=== PATIENT | female | born 1950 | race Caucasian/White ===

== ENCOUNTER 2019-05-07 13:15 | Emergency (ER) | payer MEDICARE, OTHER ==
[2019-05-07 13:23] VITALS: RESP 19
--- NOTE | 2019-05-07 13:51 | ED ---
Fall HPI - General Chief Complaint: Fall Stated Complaint: fall Time Seen by Provider: 05/07/19 13:30 Source: patient, EMS Mode of arrival: EMS - History of Present Illness Initial Comments: Patient is 69-year-old female presenting to emergency Department with chief complaint of a fall. Patient reports she was in a [employer] when she attempted to reach for her [employer] card and tripped over her shoes causing her to fall forward. Patient reports she attempted to brace herself with her hands and now she's having pain in the right wrist with limited range of motion. Patient also reports some trauma to the distal end of the right second digit. Patient does report some supraorbital trauma with bleeding from region. Patient denies any headaches. Patient denies blood thinners, nausea, vomiting or loss of consciousness. Patient was brought to the ED via EMS from [facility]. - Related Data Home Medications Medication Instructions Recorded Confirmed Montelukast Sodium [Singulair] 10 mg PO HS 09/28/15 11/07/15 Pilocarpine HCl 5 mg PO TID 09/28/15 11/07/15 Simvastatin 40 mg PO HS 09/28/15 11/07/15 Pro-Stat Sugar Free 30 ml PO BID 11/07/15 11/07/15 Previous Rx's Medication Instructions Recorded Artificial Tears-Hypromellose 1 drops BOTH EYES QID PRN #0 bottle 10/16/15 [Artificial Tear Drops] Metoprolol Succinate [Toprol XL] 50 mg PO DAILY #1 tab 10/16/15 ALPRAZolam [Xanax] 0.25 mg PO BID PRN #10 tab 11/10/15 Aspirin 81 mg PO DAILY #1 chewable 11/10/15 Cholestyramine (with Sugar) 4 gm PO TID #30 packet 11/10/15 [Questran Packet] Hydrocodone/Acetaminophen 1 tab PO BID PRN #20 tablet 11/10/15 [Hydrocodone-Acetamin 2.5-325] Lactobacillus Acidoph & Bulgar 1 each PO TID #30 packet 11/10/15 [Lactinex] metroNIDAZOLE [Flagyl] 500 mg PO TID #30 tab 11/10/15 Allergies Allergy/AdvReac Type Severity Reaction Status Date / Time cefaclor Allergy Rash/Hives Verified 11/07/15 18:30 hornet venom Allergy Anaphylaxis Verified 11/07/15 18:30 Iodinated Contrast Media Allergy Itching Verified 11/07/15 18:30 Review of Systems ROS Statement: Those systems with pertinent positive or pertinent negative responses have been documented in the HPI. ROS Other: All systems not noted in ROS Statement are negative. Past Medical History Past Medical History: Asthma, Diabetes Mellitus, Fibromyalgia, Hyperlipidemia, Hypertension, Osteoarthritis (OA), Thyroid Disorder Additional Past Medical History / Comment(s): raynaud's dz, sjogren's syndrome, closed head injury September 2015 History of Any Multi-Drug Resistant Organisms: None Reported Past Surgical History: Adenoidectomy, Tonsillectomy Additional Past Surgical History / Comment(s): bowel surgery, cataract suregry bilateral, rectal dilation, Past Anesthesia/Blood Transfusion Reactions: No Reported Reaction Past Psychological History: Anxiety, Depression Smoking Status: Former smoker Past Alcohol Use History: None Reported Past Drug Use History: None Reported - Past Family History Mother Family Medical History: Unable to Obtain General Exam Limitations: no limitations General appearance: alert, in no apparent distress Head exam: Present: normocephalic. Absent: atraumatic (Trauma to the right supraorbital region with no active bleeding at this time.), normal inspection, other (Negative hemotympanum, negative periorbital ecchymosis, negative Comer sign.) Eye exam: Present: normal appearance, PERRL, EOMI, other (Trauma the right eyebrow) Pupils: Present: normal accommodation ENT exam: Present: normal exam, normal oropharynx (No oral trauma), mucous membranes moist, TM's normal bilaterally, normal external ear exam Neck exam: Present: normal inspection, full ROM. Absent: tenderness Respiratory exam: Present: normal lung sounds bilaterally Cardiovascular Exam: Present: regular rate, normal rhythm, normal heart sounds GI/Abdominal exam: Present: soft. Absent: distended, tenderness, guarding Extremities exam: Present: normal inspection, full ROM Back exam: Present: normal inspection, full ROM Neurological exam: Present: alert, oriented X3 Psychiatric exam: Present: normal affect, normal mood Skin exam: Present: warm, intact, normal color Course Vital Signs 05/07/19 13:17 Temperature 98.5 F Pulse Rate 81 Respiratory 19 Rate Blood Pressure 129/70 O2 Sat by Pulse 100 Oximetry Procedures - Laceration Laceration #1 Consent Obtained: verbal consent Indication: laceration Site: face Size (cm): 1 Description: linear Depth: simple, single layer Sedation/Analgesia: none Pre-repair: irrigated extensively Type of Sutures: nylon Size of Sutures: 4-0 Number of Sutures: 2 Technique: simple, interrupted Patient Tolerated Procedure: well, no complications Medical Decision Making - Medical Decision Making patient is 69-year-old female presenting to the emergency department with a chief complaint of a fall. Patient is not on blood thinners. There was no loss of consciousness and but there appears to be head trauma with some contusion to the right supraorbital region with a laceration of less than 1 cm. Patient is also having limited range of motion in the right wrist. CT of the brain and C- spine is negative for acute fractures, dislocations, intracranial hemorrhage, midline shift or any space-occupying lesions. X-ray of the right wrist is indicative of no fractures dislocations although follow-up study in 7-10 days is suggested. There is some severe osteoarthritis in the hand. Patient does not have any snuffbox tenderness. Patient advised to follow-up with orthopedics for further management. Patient vised to return to emergency department for suture removal in 3-5 days. Strict return parameters were thoroughly discussed with patient was understanding and agreeable. Case discussed physician. With Disposition Clinical Impression: Fall, Laceration, Wrist pain Disposition: HOME SELF-CARE Condition: Stable Instructions (If sedation given, give patient instructions): Fall Prevention (ED) Additional Instructions: Please follow-up with account resolution specialist. Please return to emergency department if symptoms worsen. Is patient prescribed a controlled substance at d/c from ED?: No Referrals: Patric Heaton MD [Primary Care Provider] - 1-2 days Time of Disposition: 15:37
--- NOTE | 2019-05-07 14:40 | CT ---
EXAMINATION TYPE: CT brain hussain bush con DATE OF EXAM: 05/07/2019 COMPARISON: 10/12/2015 HISTORY: fall with blow to head. right eyebrow laceration CT DLP: 1364.[address] of the brain was performed. The ventricles, basal cisterns and sulci overlying the cerebral convexities demonstrate mild enlargem ent. There is no evidence for intracranial hemorrhage or sulcal effacement. There is decreased attenuatio n about the periventricular white matter and deep white matter of both cerebral hemispheres, compatib le with chronic small vessel ischemia. No mass effects are seen. If symptoms persist consider MRI. Osseous calvarium is intact. Right supraorbital soft tissue swelling noted. IMPRESSION: 1. Age related atrophic and chronic small vessel ischemic change without acute intracranial process seen at this time. CT Cervical Spine: Unenhanced CT of the cervical spine was performed with bone and soft tissue window settings submitted . Coronal and sagittal reconstruction is obtained. There is normal alignment and prevertebral soft tissues. No evidence for acute cervical fracture . Scattered degenerative disc disease and spondylosis. Biapical scarring. IMPRESSION: 1. No evidence for acute fracture or subluxation of the cervical spine.
--- NOTE | 2019-05-07 15:24 | XR ---
EXAMINATION TYPE: XR hand complete RT DATE OF EXAM: 05/07/2019 COMPARISON: NONE HISTORY: Pain TECHNIQUE: Three views are submitted. FINDINGS: Diffuse osteopenia. Severe arthropathy of the DIP joints and fourth and fifth PIP joints. Mild arthro gasper of the remaining joints. Central erosive changes involving the second, third, fourth and fifth DIP joints. Question of ankylosis of the fourth DIP joint. No acute displaced fracture. IMPRESSION: 1. No definite acute fracture or dislocation if symptoms persist, follow-up study in 7 to 10 days wo uld be suggested. 2. Severe erosive osteoarthritis
--- NOTE | 2019-05-07 15:26 | XR ---
EXAMINATION TYPE: XR chest 2V DATE OF EXAM: 05/07/2019 COMPARISON: NONE TECHNIQUE: PA and lateral views submitted. HISTORY: Pain FINDINGS: The lungs are clear and there is no pneumothorax, pleural effusion, or focal pneumonia. Diffuse ost eopenia. No overt failure. Heart size normal. Suggestion of a hiatal hernia. Atherosclerotic change o f the aorta. Hypertrophic and degenerative change of the spine. Questionable deformity involving the right clavicle. IMPRESSION: 1. No acute intrathoracic process. 2. Questionable deformity involving the midshaft right clavicle correlate with point tenderness for h airline fracture.
--- NOTE | 2019-05-07 15:26 | XR ---
EXAMINATION TYPE: XR pelvis AP view DATE OF EXAM: 05/07/2019 COMPARISON: NONE HISTORY: Pain The osseous structures are intact and the joint spaces are preserved. No acute fracture is seen. Vi sualized bowel gas pattern is nonspecific. Diffuse osteopenia. Degenerative change of the spine. Sev ere arthropathy of the hips. IMPRESSION: 1. No acute fracture.
--- NOTE | 2019-05-07 15:29 | XR ---
EXAMINATION TYPE: XR wrist complete RT DATE OF EXAM: 05/07/2019 CLINICAL HISTORY: pain TECHNIQUE: Frontal, lateral and oblique images of the right wrist are obtained. COMPARISON: None. FINDINGS: Progressive evidence for fracture. There is widening of the scapholunate joint space may reflect lig amentous tear. The overlying soft tissue appears unremarkable. IMPRESSION: No acute fracture seen. Correlate for scapholunate ligamentous tear. ICD 10 NO FRACTURE, INITIAL EVALUATION
[2019-05-07] MEDS: TOPICAL SKIN ADHESIVE 1 EACH AMP TOPICAL ONE ×2 (15:40→15:47)
[2019-05-07 20:10] VITALS: BP 132/77; PULSE 78; TEMP 98
== END 2019-05-07 16:11 | disposition home or self-care (01) ==
LOC: EC 13:15
DX: S01.81XA Laceration without foreign body of other part of head, initial encounter (principal); M19.041 Primary osteoarthritis, right hand; E78.5 Hyperlipidemia, unspecified; I10 Essential (primary) hypertension; M35.00 Sjogren syndrome, unspecified; Z79.899 Other long term (current) drug therapy; Z91.041 Radiographic dye allergy status; Z88.1 Allergy status to other antibiotic agents; Z91.030 Bee allergy status; Z87.891 Personal history of nicotine dependence; W01.0XXA Fall on same level from slipping, tripping and stumbling without subsequent striking against object, initial encounter; Y93.89 Activity, other specified
CPT/HCPCS: 12011; 70450; 71046; 72125; 72170; 99284

== ENCOUNTER 2019-05-15 12:42 | Observation (INO) | payer MEDICARE, OTHER ==
--- NOTE | 2019-05-15 13:55 | ED ---
General Adult HPI - General Chief complaint: ENT Stated complaint: FB throat Time Seen by Provider: 05/15/19 12:56 Source: patient Mode of arrival: wheelchair Limitations: physical limitation - History of Present Illness Initial comments: Dictation was produced using [employer] dictation software. please excuse any grammatical, word or spelling errors. Chief Complaint: 69-year-old female presents with difficulty swallowing. History of Present Illness: 69-year-old female she has past medical history of Sjogren's syndrome, rheumatoid arthritis and renounced disease. Patient states she was eating dry toast this morning when she felt as though food bolus Stuck in her throat. She waited for several hours to see if the food bolus with past. Patient states she's been having swallowing difficulties that have been increasing intensity and frequency. She has never been evaluated for dysphagia in the past. Patient states she continues to feel foreign body in her throat. Denies any trouble breathing. She reports that she is unable to swallow even liquids. The ROS documented in this emergency department record has been reviewed and confirmed by me. Those systems with pertinent positive or negative responses have been documented in the HPI. All other systems are other negative and/or noncontributory. PHYSICAL EXAM: General Impression: Alert and oriented x3, not in acute distress HEENT: Normocephalic atraumatic, extra-ocular movements intact, pupils equal and reactive to light bilaterally, mucous membranes moist. Cardiovascular: Heart regular rate and rhythm, S1&S2 audible, no murmurs, rubs or gallops Chest: Lungs clear to auscultation bilaterally, no rhonchi, no wheeze, no rales Abdomen: Bowel sounds present, abdomen soft, non-tender, non-distended, no organomegaly Musculoskeletal: Pulses present and equal in all extremities, no peripheral edema Motor: no focal deficits noted Neurological: CN II-XII grossly intact, no focal motor or sensory deficits noted Skin: Intact with no visualized rashes Psych: Normal affect and mood ED course: 69-year-old female presents with dysphagia. Vital signs upon arrival are within acceptable limits. Patient is nontoxic-appearing. She is not drooling or showing any signs of respiratory distress. Soft tissue neck x-ray was obtained showing pain airway soft tissue neck CT shows frothy attenuation within the proximal cervical esophagus which represents food bolus. Discussed patient case with Dr. Cherry who requests the patient be admitted to medicine with possible plans for upper endoscopy tomorrow morning. Patient nontoxic appearing. She is not drooling or showing signs rest or distress. Discussed patient case with Dr. Heaton patient's primary care physician who is willing to accept patients care for admission. - Related Data Home Medications Medication Instructions Recorded Confirmed Pilocarpine HCl 5 mg PO TID 09/28/15 05/15/19 ALPRAZolam [Xanax] 0.5 mg PO TID 05/15/19 05/15/19 Furosemide [Lasix] 40 mg PO DAILY 05/15/19 05/15/19 Metoprolol Tartrate [Lopressor] 25 mg PO BID 05/15/19 05/15/19 Simvastatin [Zocor] 20 mg PO HS 05/15/19 05/15/19 Telmisartan [Micardis] 40 mg PO DAILY 05/15/19 05/15/19 traMADol HCL 50 mg PO BID 05/15/19 05/15/19 Allergies Allergy/AdvReac Type Severity Reaction Status Date / Time cefaclor Allergy Rash/Hives Verified 05/15/19 13:50 hornet venom Allergy Anaphylaxis Verified 05/15/19 13:50 Iodinated Contrast Media Allergy Itching Verified 05/15/19 13:50 Review of Systems ROS Statement: Those systems with pertinent positive or pertinent negative responses have been documented in the HPI. ROS Other: All systems not noted in ROS Statement are negative. Past Medical History Past Medical History: Asthma, Diabetes Mellitus, Fibromyalgia, Hyperlipidemia, Hypertension, Osteoarthritis (OA), Thyroid Disorder Additional Past Medical History / Comment(s): raynaud's dz, sjogren's syndrome, closed head injury September 2015, legally blind History of Any Multi-Drug Resistant Organisms: None Reported Past Surgical History: Adenoidectomy, Tonsillectomy Additional Past Surgical History / Comment(s): bowel surgery, cataract suregry bilateral, rectal dilation, Past Anesthesia/Blood Transfusion Reactions: No Reported Reaction Past Psychological History: Anxiety, Depression Smoking Status: Former smoker Past Alcohol Use History: None Reported Past Drug Use History: None Reported - Past Family History Mother Family Medical History: Unable to Obtain General Exam Limitations: physical limitation Course Vital Signs 05/15/19 12:50 Temperature 98.2 F Pulse Rate 100 Respiratory 18 Rate Blood Pressure 150/78 O2 Sat by Pulse 100 Oximetry Medical Decision Making - Lab Data Result diagrams: 05/15/19 13:50 05/15/19 13:50 Lab Results 05/15/19 05/15/19 Range/Units 13:50 13:50 WBC 4.9 (3.8-10.6) k/uL RBC 4.40 (3.80-5.40) m/uL Hgb 12.9 (11.4-16.0) gm/dL Hct 38.0 (34.0-46.0) % MCV 86.5 (80.0-100.0) fL MCH 29.2 (25.0-35.0) pg MCHC 33.8 (31.0-37.0) g/dL RDW 13.9 (11.5-15.5) % Plt Count 242 (150-450) k/uL Neutrophils % 79 % Lymphocytes % 13 % Monocytes % 5 % Eosinophils % 1 % Basophils % 0 % Neutrophils # 3.9 (1.3-7.7) k/uL Lymphocytes # 0.6 L (1.0-4.8) k/uL Monocytes # 0.2 (0-1.0) k/uL Eosinophils # 0.1 (0-0.7) k/uL Basophils # 0.0 (0-0.2) k/uL Sodium 138 (137-145) mmol/L Potassium 4.1 (3.5-5.1) mmol/L Chloride 106 (98-107) mmol/L Carbon Dioxide 25 (22-30) mmol/L Anion Gap 7 mmol/L BUN 12 (7-17) mg/dL Creatinine 1.09 H (0.52-1.04) mg/dL Est GFR (CKD-EPI)AfAm 59 (>60 ml/min/1.73 sqM) Est GFR (CKD-EPI)NonAf 51 (>60 ml/min/1.73 sqM) Glucose 108 H (74-99) mg/dL Calcium 9.9 (8.4-10.2) mg/dL Disposition Clinical Impression: Food impaction of esophagus Disposition: ADMITTED IP TO THIS HOSP Condition: Fair Referrals: Patric Heaton MD [Primary Care Provider] - 1-2 days Decision Time: 15:40
[2019-05-15 14:00] LABS: Basophils % (A) 0 %; Eosinophils # (A) 0.1 k/uL (0-0.7); Eosinophils % (A) 1 %; HGB 12.9 gm/dL (11.4-16.0); Lymphocytes # (A) 0.6 k/uL (1.0-4.8); Lymphocytes % (A) 13 %; MCH 29.2 pg (25.0-35.0); MCHC 33.8 g/dL (31.0-37.0); MCV 86.5 fL (80.0-100.0); Mean Platelet Volume 6.4; Monocytes # (A) 0.2 k/uL (0-1.0); Monocytes % (A) 5 %; Neutrophils # (A) 3.9 k/uL (1.3-7.7); Neutrophils % (A) 79 %; Platelet Count 242 k/uL (150-450); RDW 13.9 % (11.5-15.5); WBC 4.9 k/uL (3.8-10.6)
--- NOTE | 2019-05-15 14:01 | XR ---
EXAMINATION TYPE: XR soft tissue neck DATE OF EXAM: 05/15/2019 COMPARISON: NONE HISTORY: Dysphasia, possible foreign body TECHNIQUE: Frontal and lateral views of neck soft tissues FINDINGS: Airways patent. No prevertebral edema. Epiglottic shadow is normal. No radiopaque foreign b edie. Calcifications of the right carotid bifurcation. IMPRESSION: No radiopaque foreign body. Patent airway.
[2019-05-15 14:08] LABS: Calcium 9.9 mg/dL (8.4-10.2); Potassium 4.1 mmol/L (3.5-5.1)
--- NOTE | 2019-05-15 14:54 | CT ---
EXAMINATION TYPE: CT soft tissue neck wo con DATE OF EXAM: 05/15/2019 HISTORY: Cough and dysphagia. COMPARISON: None CT DLP: 211.5 mGycm. Automated Exposure Control for Dose Reduction was Utilized. TECHNIQUE: CT scan of the neck is performed without intravenous contrast, axial images are obtained, coronal and sagittal reformatted images are reviewed. FINDINGS: Lack of intravenous contrast significantly limits evaluation. The nasopharynx, oropharynx, hypopharynx, and larynx are patent. Somewhat frothy attenuated appearanc e within the proximal cervical esophagus, noncalcified, centered at the distal margin of the cricoid cartilage. The thyroid gland is heterogenous in attenuation with marked enlargement of the left lobe extending i nto the superior mediastinum. Calcifications of the arterial vasculature. No aggressive osseous lesion. Mild-moderate cervical spine degenerative changes; grade 1 anterolisthe sis of C4 over C5 and C5 over C6 is likely on a degenerative basis. Lung apices are clear. IMPRESSION: Somewhat frothy attenuation within the proximal cervical esophagus is nonspecific however may represe nt food bolus in the appropriate clinical setting.
[2019-05-15] MEDS ORDERED: GLUCAGON 1 MG/ML VIAL IVP STA (14:57)
[2019-05-15] MEDS ORDERED: ONDANSETRON 4 MG/2 ML VIAL IVP PRN (15:37)
[2019-05-15] MEDS ORDERED: NALOXONE 0.4 MG/ML 1 ML VIAL IV PRN (15:37)
[2019-05-15] MEDS: SODIUM CHLORIDE 0.9% 1,000 ML IV SCH (16:02)
[2019-05-15] MEDS: KETOROLAC 30 MG/ML 1 ML VIAL IVP PRN (20:52)
[2019-05-15] MEDS: PILOCARPINE 5 MG TAB PO SCH (21:30)
--- NOTE | 2019-05-15 21:49 | HP ---
HISTORY AND PHYSICAL CHIEF COMPLAINT: 69-year-old white female who apparently has history of Sjogren's syndrome, rheumatoid arthritis, disease, swallowing toast got caught in her throat. She waited for several hours to try to get it passed. She felt difficulty swallowing with pain in the back of her throat. Evaluated for dysphagia in the past. EGD is scheduled for in the morning to remove foreign body unless respiratory status worsens overnight. She is unable to swallow liquids. Waiting for Gastroenterology consult. REVIEW OF SYMPTOMS: 14-point review of systems negative except for severe arthritis and recent fall hitting her head. She has bruising on the right side of her scalp. PHYSICAL EXAMINATION: Cardiovascular: S1-S2. Lungs show no signs of wheezing. Oxygen levels in mid 90s to high 90s on room air. Abdomen is soft. Extremities show gross edema and swelling in multiple joints including knees, ankles, hands. INTEGUMENT: Bruising over the right frontal area for periorbital. MEDICATIONS: Home medicines include Pilocarpine 5 mg t.i.d., Xanax 0.5 t.i.d., Lasix 40 mg daily, Lopressor 25 b.i.d., Zocor 20 daily, Micardis 40 daily, tramadol 50 b.i.d. ALLERGIES: TO CEFACLOR, HORNET VENOM, IODINE CONTRAST. REVIEW OF SYSTEMS: Fourteen-point review of systems negative except for mentioned in HPI. PAST MEDICAL HISTORY: Fibromyalgia, diabetes mellitus, dyslipidemia, hypertension, asthma, osteoarthritis, hypothyroidism. SURGERIES: Adenoidectomy, tonsillectomy, bowel surgery, cataract surgery. History of anxiety/depression. SOCIAL HISTORY: Former smoker. No alcohol. No drug use. FAMILY HISTORY: Mother unable to obtain. PHYSICAL EXAM: Vital signs stable. Afebrile. Cardiovascular S1, S2. LUNGS: No wheezing. Integument shows right periorbital bruising. Blood pressure is 150/78. Respiratory 16 to 18, pulse rate 100, temp 98.2. LABORATORY DATA: BUN is 12, creatinine 1.09, hemoglobin 12.9, white count 4.9. ASSESSMENT: 1. Food impaction of the esophagus. 2. Severe rheumatoid arthritis. 3. Osteoarthritis. 4. Orbital contusion. EGD to remove foreign body will be necessary probably be done in the morning unless respiratory distress occurs. Continue with Toradol IV for pain. Please see further orders. MMODL / IJN: [id number] /
[2019-05-15] MEDS: LORazepam 2 MG/ML INJ IV PRN (21:59)
[2019-05-16] MEDS: SODIUM CHLORIDE 0.9% 1,000 ML IV SCH ×3 (00:12→20:25)
[2019-05-16] MEDS: KETOROLAC 30 MG/ML 1 ML VIAL IVP PRN (03:14)
[2019-05-16] MEDS: LOSARTAN 50 MG TAB PO SCH ×2 (07:38→09:03)
[2019-05-16] MEDS: METOPROLOL TARTRATE 25 MG TAB PO SCH ×3 (07:38→20:24)
[2019-05-16] MEDS: FUROSEMIDE 40 MG TAB PO SCH ×2 (07:38→09:03)
[2019-05-16] MEDS: PILOCARPINE 5 MG TAB PO SCH ×4 (07:38→20:25)
[2019-05-16] MEDS: LORazepam 2 MG/ML INJ IV PRN (07:38)
[2019-05-16] MEDS ORDERED: PROPOFOL 10 MG/ML 20 ML VIAL IV ONE (08:16)
[2019-05-16] MEDS ORDERED: IV FLUID CONTINUATION 300 ML IV ONE (08:22)
--- NOTE | 2019-05-16 08:45 | P.PCN ---
Date of Procedure: 05/16/19 Procedure(s) Performed: BRIEF HISTORY: Patient is a 69-year-old, pleasant, female admitted hospital with acute for dysphagia. She had a piece of cirrhosis that was stuck in her throat yesterday evening. She is scheduled for an upper endoscopy to evaluate this further. PROCEDURE PERFORMED: Esophagoscopy with dilation and foreign body removal. PREOPERATIVE DIAGNOSIS: Acute food dysphagia. IV sedation per anesthesia. PROCEDURE: After informed consent was obtained, the patient was brought into the endoscopy unit. IV sedation was administered by Anesthesia under continuous monitoring. Initially the Olympus GIF-140 video endoscope was inserted into the mouth. Esophagus intubated without any difficulty. In the proximal cervical esophagus at 16 cm from the anal verge there was a circumferential stricture noted. The scope could not be advanced through the stricture. There was a small piece of food that was floating in the valeculla At this time proceed with a balloon dilation using 8-10 mm balloon in a sequential fashion for total of 90 seconds. Following this I was not able to advance the scope through the stricture. Initially I used a Florez net to retrieve the small piece of food that was located in the proximal cervical esophagus but hasn't was trying to retrieve it in gently passed through the stricture into the distal esophagus. At this time the procedure was terminated and the patient tolerated the procedure IMPRESSION: 1. Proximal cervical esophageal stricture status post balloon dilation using 8- 10 mm TTS balloon as described above. 2. Small piece of food in the proximal cervical esophagus that was removed as described above. RECOMMENDATIONS: The findings of this examination were discussed with the patient . She was advised to remain on a liquid diet today and advance as tolerated tomorrow. She was advised to follow up in office in 2-3 weeks
[2019-05-16 14:22] VITALS: RESP 16
--- NOTE | 2019-05-16 14:43 | CONS ---
CONSULTATION DATE OF DICTATION: May 16, 2019. REASON FOR CONSULTATION: Acute dysphagia. HISTORY OF PRESENT ILLNESS: Patient is a 69-year-old pleasant white female came into the emergency room last evening complaining of food stuck in the throat area. The patient has history of Sjogren syndrome and rheumatoid arthritis and has been having intermittent dysphagia to pills for the last several months' duration. She was eating toast and she thought it got caught in her throat. She came into the emergency room yesterday evening and looked comfortable and was able to swallow her liquids. She was admitted to the hospital for overnight observation and we are consulted for further evaluation. The patient, this morning, states that she still feels that there is a piece of toast stuck in her throat. She has been able to swallow saliva. She had a comfortable night. PAST MEDICAL HISTORY: Significant for Sjogren's disease, rheumatoid arthritis, fibromyalgia, diabetes mellitus, dyslipidemia, hypertension, osteoarthritis. PAST SURGICAL HISTORY: Adenoidectomy, tonsillectomy, cataract surgery. MEDICATIONS: At home include pilocarpine, Xanax, Lasix, Lopressor, Zocor, Micardis, Tramadol. ALLERGIES: CECLOR, IODINE. SOCIAL HISTORY: No smoking. No alcohol use. FAMILY HISTORY: Unremarkable. REVIEW OF SYSTEMS: Cardiopulmonary: No chest pain, shortness of breath. no dysuria hematuria. Musculoskeletal: Unremarkable. SKIN: Unremarkable. ENDOCRINE: Unremarkable. PSYCHIATRIC unremarkable. NEUROLOGY unremarkable. ENT/vision unremarkable. CONSTITUTIONAL: She denies any weight loss. No fever, chills, night sweats. PHYSICAL EXAMINATION: Appears comfortable in no apparent distress. Vital signs are stable. Blood pressure 153/75. Pulse 107. Temperature 98. HEENT: Unremarkable. Conjunctivae pink. Sclerae anicteric. Oral cavity no lesions. NECK: No JVD or lymph node enlargement. CHEST: Clear to auscultation. HEART: Regular rate and rhythm. ABDOMEN: Soft. Bowel sounds are positive. No organomegaly. EXTREMITIES: No pedal edema. SKIN: No rashes. NEUROLOGICAL: She is alert and oriented x3. No focal deficits. LABS: WBC 4.9, hemoglobin 12.9, platelets normal. Basic metabolic panel is within normal limits. IMPRESSION: 1. This is a lady who has intermittent dysphagia to solids and pills for the last several months duration, presents to the hospital after having a piece of toast for lunch yesterday and she feels it is stuck in her throat. Clinically she is stable. Never had these symptoms in the past. 2. History of rheumatoid arthritis. 3. History of Sjogren's disease. RECOMMENDATIONS: We will proceed with an upper endoscopy today. Discussed with the patient, risks, benefits and complications of the procedure and she is agreeable to it. Thank you for this consultation. MMODL / IJN: [id number] /
[2019-05-16] MEDS: traMADol 50 MG TAB PO PRN (15:34)
[2019-05-16] MEDS: ALPRAZolam 0.5 MG TAB PO PRN (20:24)
[2019-05-16] MEDS ORDERED: ATORVASTATIN 10 MG TAB PO SCH (21:00)
--- NOTE | 2019-05-16 21:09 | PN ---
PROGRESS NOTE 69-year-old white female, status post EGD for removal of foreign body today. She also had esophageal dilatation per Dr. Cherry, Gastroenterology physician. Small piece of food floating in the vallecula and balloon dilation of a stricture, proximal cervical esophageal stricture with balloon dilation. A small piece of food in this area was also removed. The patient stabilized. Will follow up as an outpatient. Possible discharge home tomorrow after diet is advanced. MMODL / IJN: [id number] /
[2019-05-17] MEDS: KETOROLAC 30 MG/ML 1 ML VIAL IVP PRN (01:10)
[2019-05-17 05:13] VITALS: BP 134/69; PULSE 75; TEMP 98.3
[2019-05-17] MEDS: LOSARTAN 50 MG TAB PO SCH (07:46)
[2019-05-17] MEDS: METOPROLOL TARTRATE 25 MG TAB PO SCH (07:47)
[2019-05-17] MEDS: PILOCARPINE 5 MG TAB PO SCH (07:47)
[2019-05-17] MEDS: SODIUM CHLORIDE 0.9% 1,000 ML IV SCH (07:47)
[2019-05-17] MEDS: FUROSEMIDE 40 MG TAB PO SCH (07:47)
[2019-05-17] MEDS: ALPRAZolam 0.5 MG TAB PO PRN (07:51)
[2019-05-17] MEDS: traMADol 50 MG TAB PO PRN (09:31)
--- NOTE | 2019-05-17 11:17 | P.DS ---
Providers Date of admission: 05/15/19 15:49 Expected date of discharge: 05/17/19 Attending physician: Patric Heaton Consults: 05/15/19 15:34 Consult Physician Routine Consulting Provider: Linda Cherry Consult Reason/Comments: bread in throat Do you want consulting provider notified?: Already Contacted Primary care physician: Patric Heaton [facility] Course: Final Diagnoses: -Acute food dysphagia, proximal cervical esophageal stricture, status post EGD with removal of foreign body, status post esophageal dilatation. -Hypertension -Hyperlipidemia -PTSD -Chronic intermittent asthma -COPD -Fibromyalgia -OA Hospital course is a 69-year-old female status post EGD for removal of foreign body with esophageal dilatation as per GI. Tolerated procedure well. Tolerating diet advancement. Significant clinical improvement. Patient is eager for discharge. Patient is being discharged home in stable condition with her prognosis. EXAM: GENERAL: Sitting up in chair, alert and oriented 3, no acute distress. CARDIOVASCULAR: S1, S2 regular.. No murmur RESPIRATION: Breath sounds diminished in the bases. ABDOMEN: Soft, nontender . No guarding. no masses palpable.Bowel sounds heard. NERVOUS SYSTEM: No focal deficits. The impression and plan of care has been dictated as directed. DrMars: I performed a history and examination of this patient, discussed the same with the dictator. I agree with the dictator's note ,documented as a scribe. Any additional findings or plans will be noted. Patient Condition at Discharge: Stable Plan - Discharge Summary Discharge Rx Participant: No New Discharge Prescriptions: Continue Pilocarpine HCl 5 mg PO TID Telmisartan [Micardis] 40 mg PO DAILY ALPRAZolam [Xanax] 0.5 mg PO TID Simvastatin [Zocor] 20 mg PO HS Metoprolol Tartrate [Lopressor] 25 mg PO BID Furosemide [Lasix] 40 mg PO DAILY traMADol HCL 50 mg PO BID Discharge Medication List Pilocarpine HCl 5 mg PO TID 09/28/15 [History] ALPRAZolam [Xanax] 0.5 mg PO TID 05/15/19 [History] Furosemide [Lasix] 40 mg PO DAILY 05/15/19 [History] Metoprolol Tartrate [Lopressor] 25 mg PO BID 05/15/19 [History] Simvastatin [Zocor] 20 mg PO HS 05/15/19 [History] Telmisartan [Micardis] 40 mg PO DAILY 05/15/19 [History] traMADol HCL 50 mg PO BID 05/15/19 [History] Follow up Appointment(s)/Referral(s): Patric Heaton MD [Primary Care Provider] - 05/24/19 1:30 pm Linda Cherry MD [STAFF PHYSICIAN] - 06/02/19 2:30 pm Ambulatory/Diagnostic Orders: Basic Metabolic Panel [LAB.AMB] Time Frame: 3 Days, Location: None Selected Patient Instructions/Handouts: Upper Endoscopy (DC) Discharge Disposition: HOME SELF-CARE
== END 2019-05-17 11:05 | disposition home or self-care (01) ==
LOC: EC 12:42 → 4MS4W 15:49
PROVIDERS: ADMIT Family Medicine; ATTEND Family Medicine
DX: T18.128A Food in esophagus causing other injury, initial encounter (principal); K22.2 Esophageal obstruction; I10 Essential (primary) hypertension; E78.5 Hyperlipidemia, unspecified; F43.10 Post-traumatic stress disorder, unspecified; J45.20 Mild intermittent asthma, uncomplicated; J44.9 Chronic obstructive pulmonary disease, unspecified; M79.7 Fibromyalgia; M19.90 Unspecified osteoarthritis, unspecified site; M06.9 Rheumatoid arthritis, unspecified; S00.03XA Contusion of scalp, initial encounter; M35.00 Sjogren syndrome, unspecified; I73.00 Raynaud's syndrome without gangrene; E11.9 Type 2 diabetes mellitus without complications; E03.9 Hypothyroidism, unspecified; H54.8 Legal blindness, as defined in USA; F41.9 Anxiety disorder, unspecified; F32.9 Major depressive disorder, single episode, unspecified; Z79.899 Other long term (current) drug therapy; Z79.891 Long term (current) use of opiate analgesic; Z88.1 Allergy status to other antibiotic agents; Z91.038 Other insect allergy status; Z91.041 Radiographic dye allergy status; Z87.820 Personal history of traumatic brain injury; Z90.89 Acquired absence of other organs; Z98.890 Other specified postprocedural states; Z98.42 Cataract extraction status, left eye; Z98.41 Cataract extraction status, right eye; Z87.891 Personal history of nicotine dependence; X58.XXXA Exposure to other specified factors, initial encounter; W19.XXXA Unspecified fall, initial encounter
CPT/HCPCS: 96376; 96375; 96374; 99285; 36415; 80048; 85025; 70360; 70490; 43247; 43249; G0378 ×3; J2060 ×2; J1610; J1885 ×3; J2704; C1726

== ENCOUNTER 2023-12-25 21:17 | Emergency (ER) | payer MEDICARE, OTHER ==
--- NOTE | 2023-12-25 22:00 | ED ---
General Adult HPI - General Chief complaint: Shortness of Breath Stated complaint: JOSEPHINE Time Seen by Provider: 12/25/23 21:35 Source: patient, RN notes reviewed, old records reviewed - History of Present Illness Initial comments: Patient is a 73-year-old female presents emergency department complaining of difficulty in breathing and asthma flareup after inhaling some smoke from a neighbors barbecue. States that this does occasionally flareup her asthma. Also has a history of Sjogren syndrome, lupus, CVA with mild residual left-sided weakness. States she feels like her asthma flared up and it is improved at this time. Endorses a sore throat. Denies any chest pain or current shortness of breath. Denies abdominal pain or nausea or vomiting. Presents for further evaluation. No known sick contacts. Has had some nasal drainage. Has a hard time swallowing pills due to her Sjogren's syndrome. - Related Data Home Medications Medication Instructions Recorded Confirmed Pilocarpine HCl 5 mg PO TID 09/28/15 05/15/19 ALPRAZolam [Xanax] 0.5 mg PO TID 05/15/19 05/15/19 Furosemide [Lasix] 40 mg PO DAILY 05/15/19 05/15/19 Metoprolol Tartrate [Lopressor] 25 mg PO BID 05/15/19 05/15/19 Simvastatin [Zocor] 20 mg PO HS 05/15/19 05/15/19 Telmisartan [Micardis] 40 mg PO DAILY 05/15/19 05/15/19 traMADol HCL 50 mg PO BID 05/15/19 05/15/19 Previous Rx's Medication Instructions Recorded Albuterol Inhaler [Ventolin Hfa 2 puff INHALATION Q6H PRN #1 each 12/26/23 Inhaler] predniSONE [predniSONE 5 MG/5 ML 20 mg PO DAILY 5 Days #100 ml 12/26/23 Oral Soln] Allergies Allergy/AdvReac Type Severity Reaction Status Date / Time cefaclor Allergy Rash/Hives Verified 05/15/19 13:50 cigarette smoke Allergy Cough Verified 12/25/23 22:55 hornet venom Allergy Anaphylaxis Verified 05/15/19 13:50 Iodinated Contrast Media Allergy Itching Verified 05/15/19 13:50 Review of Systems ROS Statement: Those systems with pertinent positive or pertinent negative responses have been documented in the HPI. Review of Systems: CONST: Denies fever EYES: Denies blurry vision ENT: Endorses nasal congestion, sore throat C/V: Denies Chest pain RESP: Denies shortness of breath GI: Denies abdominal pain : Denies dysuria SKIN: Denies rash. MSK: Denies joint pain. NEURO: Denies headache ROS Other: All systems not noted in ROS Statement are negative. Past Medical History Past Medical History: Asthma, CVA/TIA, Diabetes Mellitus, Fibromyalgia, Hyperlipidemia, Hypertension, Osteoarthritis (OA) Additional Past Medical History / Comment(s): raynaud's dz, shogren's syndrome, closed head injury September 2015, legally blind, cdiff 2015 History of Any Multi-Drug Resistant Organisms: None Reported Past Surgical History: Adenoidectomy, Tonsillectomy Additional Past Surgical History / Comment(s): bowel surgery secondary to obstruction, cataract suregry bilateral, rectal dilation Past Anesthesia/Blood Transfusion Reactions: No Reported Reaction Past Psychological History: Anxiety, Depression, PTSD Additional Psychological History / Comment(s): Single. No children. Retired from [employer]. No experience. No travel. 1 cat Past Alcohol Use History: None Reported Past Drug Use History: None Reported - Past Family History Mother Family Medical History: Diabetes Mellitus General Exam - General Exam Comments Initial Comments: General: Appears in no acute distress. HEAD: Normal with no signs of head trauma. EYES: PERRLA, EOMI, conjunctiva normal, no discharge. ENT: Hearing grossly intact, normal oropharynx. No stridor. Tolerating oral secretions. RESPIRATORY: Mild end expiratory wheezing. Normal pulse ox. No difficulty in breathing or increased work of breathing at this time. C/V: Regular rate and rhythm. S1 and S2 auscultated, peripheral pulses 2+ and intact throughout ABD: Abd is soft, nontender, nondistended EXT: No obvious deformity SKIN: No rashes or lesions observed on exposed skin. NEURO: Alert and oriented x 4. Course Vital Signs 12/25/23 12/25/23 12/25/23 21:30 21:56 22:54 Temperature 98.2 F Pulse Rate 73 76 76 Respiratory 16 16 16 Rate Blood Pressure 140/80 O2 Sat by Pulse 99 98 100 Oximetry 12/25/23 12/26/23 12/26/23 23:11 00:09 00:16 Temperature Pulse Rate 79 80 Respiratory 16 Rate Blood Pressure O2 Sat by Pulse Oximetry 12/26/23 01:55 Temperature 98.7 F Pulse Rate 71 Respiratory 18 Rate Blood Pressure 136/74 O2 Sat by Pulse 99 Oximetry Medical Decision Making - Medical Decision Making Was pt. sent in by a medical professional or institution (ARMAND Garcia, GRADUATE RN, urgent care, hospital, or usp...) When possible be specific @ -No Did you speak to anyone other than the patient for history (EMS, parent, family, police, friend...)? What history was obtained from this source @ -No Did you review nursing and triage notes (agree or disagree)? Why? @ -I reviewed and agree with nursing and triage notes Were old charts reviewed (outside hosp., previous admission, EMS record, old EKG, old radiological studies, urgent care reports/EKG's, usp records)? Report findings @ -No old charts were reviewed Differential Diagnosis (chest pain, altered mental status, abdominal pain women, abdominal pain men, vaginal bleeding, weakness, fever, dyspnea, syncope, headache, dizziness, GI bleed, back pain, seizure, CVA, palpatations, mental health, musculoskeletal)? @ -Asthma, viral syndrome, pneumonia. This list is not all inclusive. EKG interpreted by me (3pts min.). @ -None done X-rays interpreted by me (1pt min.). @ -X-ray reveals no obvious acute cardiopulmonary process. CT interpreted by me (1pt min.). @ -None done U/S interpreted by me (1pt. min.). @ -None done What testing was considered but not performed or refused? (CT, X-rays, U/S, labs)? Why? @ -None What meds were considered but not given or refused? Why? @ -None Did you discuss the management of the patient with other professionals (professionals i.e. ARMAND Garcia, GRADUATE RN, lab, RT, psych nurse, drug abuse social worker, training analyst, te acher, ammunition officer, case sealer)? Give summary @ -No Was smoking cessation discussed for >3mins.? @ -No Was critical care preformed (if so, how long)? @ -No Were there social determinants of health that impacted care today? How? (Homelessness, low income, unemployed, alcoholism, drug addiction, transportation, low edu. Level, literacy, decrease access to med. care, alf, rehab)? @ -No Was there de-escalation of care discussed even if they declined (Discuss DNR or withdrawal of care, Hospice)? DNR status @ -No What co-morbidities impacted this encounter? (DM, HTN, Smoking, COPD, CAD, C ancer, CVA, ARF, Chemo, Hep., AIDS, mental health diagnosis, sleep apnea, morbid obesity)? @ -Asthma Was patient admitted / discharged? Hospital course, mention meds given and route, prescriptions, significant lab abnormalities, going to OR and other pertinent info. @ -Patient presents complaining of episode of difficulty breathing at home after inhaling barbecue smoke. Has a history of asthma. Currently has mild wheezing bilaterally but no other significant complaints. Vital signs within acceptable limits. We will obtain chest x-ray, viral swabs and strep swab, and symptomatically treat the patient with breathing treatment, Claritin, steroids. Patient was in agreement this plan. X-ray unremarkable. Swabs are negative. Reevaluation, patient is feeling improved. Wheezing's are improved. She will be discharged home with steroids as well as an albuterol inhaler. Patient was in agreement this plan. I instructed the patient to follow up with their PCP in the next 1-3 days. I explained that the patient should return to the emergency department if they experience any worsening symptoms. Strict return precautions were discussed with the patient. The patient expressed understanding of these instructions. I answered all questions that the patient had. The patient was discharged home in [good] condition with their prescriptions and follow up information. Undiagnosed new problem with uncertain prognosis? @ -No Drug Therapy requiring intensive monitoring for toxicity (Heparin, Nitro, Insulin, Cardizem)? @ -No Were any procedures done? @ -No Diagnosis/symptom? @ -Asthma Acute, or Chronic, or Acute on Chronic? @ -Acute Uncomplicated (without systemic symptoms) or Complicated (systemic symptoms)? @ -Complicated Side effects of treatment? @ -None Exacerbation, Progression, or Severe Exacerbation] @ -No Poses a threat to life or bodily function? @ -Unlikely - Lab Data Lab Results 12/25/23 12/25/23 Range/Units 21:42 21:42 Influenza Type A (PCR) Not Detected (Not Detectd) Influenza Type B (PCR) Not Detected (Not Detectd) RSV (PCR) Not Detected (Not Detectd) SARS-CoV-2 (PCR) Not Detected (Not Detectd) Group A Strep (PCR) NOT DETECTED (Not Detectd) Disposition Clinical Impression: Asthma Disposition: HOME SELF-CARE Condition: Good Instructions (If sedation given, give patient instructions): Asthma (ED) Prescriptions: predniSONE [predniSONE 5 MG/5 ML Oral Soln] 20 mg PO DAILY 5 Days #100 ml Albuterol Inhaler [Ventolin Hfa Inhaler] 2 puff INHALATION Q6H PRN #1 each PRN Reason: Dyspnea Is patient prescribed a controlled substance at d/c from ED?: No Referrals: Patric Heaton MD [Primary Care Provider] - 1-2 days Time of Disposition: 01:15
[2023-12-25] MEDS: methylPREDNISolone SOD SUCCI 40 MG/ML 1 ML VIAL IV STA (22:32)
[2023-12-25] MEDS: LORATADINE 10 MG TAB PO STA (22:43)
[2023-12-26] MEDS: IPRATROPIUM-ALBUTEROL 3 ML NEB INHALATION STA (00:07)
--- NOTE | 2023-12-26 01:35 | XR ---
EXAM: XR Chest, 2 Views CLINICAL HISTORY: ITS.REASON XR Reason: cough TECHNIQUE: Frontal and lateral views of the chest. COMPARISON: Chest 2 views dated 05/05/2019 FINDINGS: Lungs: The lungs are hyperexpanded. No definite focal airspace consolidation, accounting for obliquity. The pulmonary vasculature demonstrates no significant radiographic abnormality. Pleural space: Unremarkable. No pneumothorax. No large pleural effusion. Heart: Unremarkable. No cardiomegaly. Mediastinum: Unremarkable. No significant abnormality identified. The trachea is midline. Bones/joints: No acute osseous abnormality. Chronic degenerative changes throughout the lumbar spine with accentuated kyphosis. IMPRESSION: Hyperexpansion of the lungs. No definite focal consolidation or acute cardiopulmonary process identified.
[2023-12-26 02:58] VITALS: BP 136/74; PULSE 71; RESP 18; TEMP 98.7
== END 2023-12-26 01:55 | disposition home or self-care (01) ==
LOC: EC 21:17
DX: J45.909 Unspecified asthma, uncomplicated (principal); Z86.73 Personal history of transient ischemic attack (TIA), and cerebral infarction without residual deficits; Z88.1 Allergy status to other antibiotic agents; Z91.041 Radiographic dye allergy status; Z91.09 Other allergy status, other than to drugs and biological substances; Z91.038 Other insect allergy status
CPT/HCPCS: 99285 ×2; 96374 ×2; 94640; 87651; 87636; 71046; J2919

== ENCOUNTER → 2024-03-16 | Outpatient (CLI) | payer MEDICARE, OTHER ==
[2024-03-16 16:29] LABS: Basophils # (A) 0.03 X 10*3/uL (0.00-0.10); Basophils % (A) 1.3 %; Eosinophils # (A) 0.03 X 10*3/uL (0.04-0.35); Eosinophils % (A) 1.3 %; HCT 35.7 % (37.2-46.3); HGB 11.4 g/dL (12.0-15.0); Lymphocytes # (A) 0.48 X 10*3/uL (0.90-5.00); Lymphocytes % (A) 20.5 %; MCH 29.5 pg (27.0-32.0); MCHC 31.9 g/dL (32.0-37.0); MCV 92.5 FL (80.0-97.0); Mean Platelet Volume 10.7 FL (9.5-12.2); Monocytes # (A) 0.17 X 10*3/uL (0.20-1.00); Monocytes % (A) 7.3 %; NRBC Per 100 WBC 0 X 10*3/uL (0.00-0.01); Neutrophils # (A) 1.62 X 10*3/uL (1.80-7.70); Neutrophils % (A) 69.2 %; Platelet Count 183 X 10*3/uL (140-440); RBC 3.86 X 10*6/uL (4.10-5.20); RDW 14.9 % (11.5-14.5); WBC 2.34 X 10*3/uL (4.50-10.00)
[2024-03-16 16:59] LABS: ALT 12 U/L (8-44); AST 24 U/L (13-35); Albumin 4.2 g/dL (3.8-4.9); Albumin/Globulin Ratio 2.33 Ratio (1.60-3.17); Alkaline Phosphatase 71 U/L (41-126); Calcium 9.5 mg/dL (8.7-10.3); Carbon Dioxide 27.1 mmol/L (21.6-31.8); Chloride 99 mmol/L (96-109); Globulin 1.8 g/dL (1.6-3.3); Glucose 100 mg/dL (70-110); Potassium 4.5 mmol/L (3.5-5.5); Sodium 136 mmol/L (135-145); Total Bilirubin 0.4 mg/dL (0.3-1.2)
[2024-03-17 12:45] LABS: APTT 37 Sec(s) (<43); Dilute Russell Viper Venom 33 Sec(s) (<44)
== END | disposition home or self-care (01) ==
LOC: LABWHC1 09:02
PROVIDERS: ATTEND Family Medicine
DX: Z79.899 Other long term (current) drug therapy
CPT/HCPCS: 36415; 80053; 83036; 84443; 85025; 85613; 85730